=== PATIENT | male | born 1975 | race Caucasian/White ===

== ENCOUNTER 2018-07-20 17:24 | Emergency (ER) | payer SELFPAY ==
[2018-07-20 17:48] VITALS: BP 146/99; PULSE 98; RESP 18; TEMP 99.3; O2SAT 95
[2018-07-20] MEDS ORDERED: Tetanus/Diphtheria Toxoids 0.5 ml Syringe IM ONE ×2 (17:51→18:02)
[2018-07-20] MEDS ORDERED: Silver Sulfadiazine 1% Cream (20 gm) TOP STA (17:51)
[2018-07-20] MEDS ORDERED: Silver Sulfadiazine 1% Cream (20 gm) ONE (18:01)
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
== END 2018-07-20 18:25 | disposition home or self-care (01) ==
LOC: C.ER 17:24
DX: T23.201A Burn of second degree of right hand, unspecified site, initial encounter (principal); T22.111A Burn of first degree of right forearm, initial encounter; X12.XXXA Contact with other hot fluids, initial encounter